=== PATIENT | male | born 1970 | race Hispanic/Latino ===

== ENCOUNTER → 2020-11-28 | Outpatient (CLI) | payer OTHER | END | disposition home or self-care (01) | LOC: RAH 10:42 | PROVIDERS: ATTEND Orthopaedic Surgery | DX: S83.92XA Sprain of unspecified site of left knee, initial encounter (principal); S83.242A Other tear of medial meniscus, current injury, left knee, initial encounter; M25.462 Effusion, left knee; X58.XXXA Exposure to other specified factors, initial encounter; Y93.89 Activity, other specified; Y92.89 Other specified places as the place of occurrence of the external cause; Y99.8 Other external cause status | CPT/HCPCS: 73721 ==

== ENCOUNTER 2020-12-16 06:30 | Day surgery (SDC) | payer OTHER ==
[2020-12-12 09:25] VITALS: BP 120/74
[2020-12-12 09:42] LABS: BASOPHILS % (AUTO) 0.9 % (0.0-5.0); EOSINOPHILS % (AUTO) 3.8 % (0.0-8.0); HEMATOCRIT 46.4 % (42-54); LYMPHOCYTES % (AUTO) 40.1 % (21.0-51.0); MEAN CORPUSCULAR HEMOGLOBIN 30.8 pg (27.0-33.0); MEAN CORPUSCULAR HGB CONC 33.6 g/dL (32.0-36.0); MEAN CORPUSCULAR VOLUME 91.7 fL (79-99); MONOCYTES % (AUTO) 9.5 % (3.0-13.0); NEUTROPHILS % (AUTO) 45.5 % (40.0-77.0); PLATELET COUNT (AUTO) 234 K/uL (130-400); RED BLOOD CELL COUNT(AUTO) 5.06 MIL/uL (4.50-6.20); RED CELL DISTRIBUTION WIDTH 11.9 % (11.0-15.5); WHITE BLOOD COUNT (AUTO) 5.6 K/uL (4.8-10.8)
[2020-12-12 09:54] LABS: CREATININE 1.1 mg/dL (0.5-1.5); POTASSIUM 5.4 mmol/L (3.5-5.1)
[~2020-12-16] VITALS: Ht 172.7 cm; Wt 103.3 kg
[2020-12-16] VITALS (18 sets, daily range): BP systolic 104–134; BP diastolic 46–84
[~2020-12-16 06:30] MED LIST: IBUP-2077 PO; LACTATED RINGERS 1000ML 1,000 ML IV ONE
[2020-12-16] MEDS: CEFAZOLIN SODIUM 1 GM VIAL IVP SCH ×2 (07:08→08:48)
[2020-12-16] MEDS ORDERED: PROPOFOL 10 MG/ML 20ML VIAL IV ONE (07:39)
[2020-12-16] MEDS ORDERED: LIDOCAINE PF 100MG/5ML (2%) SYRINGE 5ML ONE (07:39)
[2020-12-16] MEDS ORDERED: FENTANYL CITRATE PF 50 MCG/1 ML 2ML VIAL ONE (07:40)
[2020-12-16] MEDS ORDERED: KETOROLAC 30MG VIAL (30MG/ML) ONE (09:08)
[2020-12-16] MEDS ORDERED: CEPH500B PO (09:17)
[2020-12-16] MEDS ORDERED: ACET1TAB25 PO (09:17)
[2020-12-16] MEDS ORDERED: MEPERIDINE-PF 25 MG/ML SYG ONE (09:36)
== END 2020-12-16 11:20 | disposition home or self-care (01) ==
LOC: DAH 06:30
PROVIDERS: ATTEND Orthopaedic Surgery
DX: S83.242A Other tear of medial meniscus, current injury, left knee, initial encounter (principal); Z20.822 Contact with and (suspected) exposure to COVID-19; F17.210 Nicotine dependence, cigarettes, uncomplicated; Z82.49 Family history of ischemic heart disease and other diseases of the circulatory system; X58.XXXA Exposure to other specified factors, initial encounter; Y93.89 Activity, other specified; Y92.89 Other specified places as the place of occurrence of the external cause; Y99.0 Civilian activity done for income or pay; Z79.899 Other long term (current) drug therapy
CPT/HCPCS: 29881; 36415 ×2; 80048; 84132; 85025; 87635; A4215; A4221; A4222; A4223; A4606; A4649 ×2; A4930; A6223; C9803; J0690; J1885; J2001; J2175; J2704; J3010; J7120 ×2